=== PATIENT | female | born 1975 | race Caucasian/White ===

== ENCOUNTER 2019-07-25 11:06 | Outpatient (RCR) | payer MEDICARE ==
--- NOTE | 2019-07-25 12:26 | NUR ---
Clinical Swallow Evaluation/Initial Treatment Session Patient is a 43 year old female with diagnosis of dysphagia. Pt participated in a modified barium swallow study on 07/13/19. Pt presented with mild pharyngeal dysphagia c/b consistent premature spillage over the base of tongue, silent deep penetration and trace aspiration of thin liquids, and consistent trace to minimal pharyngeal residue after the swallow. Dysphagia was judged to be secondary to decreased coordination of the swallow and decreased hyolaryngeal excursion. Pt also demonstrated symptoms consistent with laryngopharyngeal reflux (LPR) including altered vocal quality, globus sensation, and constant throat clearing. Recommendation was made for dysphagia therapy to increase strength and coordination of swallow. Patient was seen today in the outpatient clinic for initial treatment of Neuromuscular Electrical Stimulation (NMES) with VitalStim Therapy and traditional dysphagia therapy with pharyngeal exercises. Pt was seen with no family present. Oral motor exam revealed function that was grossly within normal limits. Patient tolerated room air. Hearing appeared to be WFL. Patient reported no change in her swallow skills since the modified barium swallow study. Pt confirmed that she continues to choke and cough intermittently during meal times. Provided extensive education re: need for therapy, purpose of exercises and NMES, and future plan of care. Pt indicated understanding. Pt was given water and hard candy. Pt was instructed to take small bites/sips and swallow hard, feeling all the muscles in her throat contract. Placement 3b was used to target the mylohyoid muscle, the anterior belly of the digastric muscle, the sternohyoid muscle, the omohyoid muscle, the geniohyoid muscle, and the middle pharyngeal constrictors. Channel 1 of the electrodes was aligned horizontally just above the hyoid bone and channel 2 of the electrodes was aligned horizontally at the level of the thyroid notch. This placement was used to improve base of tongue strength, pharyngeal constriction, and UES function. Pt initially tolerated 5.0 mA, but as the session progressed pt tolerated 10.0 mA. Pt received 40 minutes of stimulation. Cough noted X 1, throat clear X 5. Education provided as indicated. All questions were answered. Impressions: Pt tolerated initial session of NMES well. She continues to report and demonstrate s/s of aspiration during meals which significantly interferes with her quality of life. Pt is an excellent candidate for dysphagia exercises and NMES for improvement of strength and coordination of swallow. Recommendations: 1.Dysphagia therapy to include traditional exercises and NMES 2X/week for 6 weeks for a total of 12 treatment sessions 2.Home exercise program 3.Repeat MBS in 6 weeks with new goals to be determined at that time. Residential Goal: Pt will tolerate least restrictive diet without s/s of aspiration as judged by an objective evaluation. Short Term Goals: 1.Pt will complete 3 repetitions of a set of dysphagia exercises to improve laryngeal elevation, base of tongue retraction, and laryngeal closure, 10 repetitions per exercise, with minimal cues. 2.Pt will tolerate NMES for 45 60 minutes with no clinical s/s of aspiration to improve strength of pharyngeal constrictors, hyolaryngeal excursion, and safety with po intake. 3.Pt will complete home dysphagia exercise program targeting laryngeal elevation, base of tongue strength, and cricopharyngeal function independently. 4.Pt will follow aspiration precautions with independence. 5.Pt will participate in a repeat Modified Barium Swallow study to objectively re-assess swallow safety and function and determine safest diet. Angela Christensen M.A. [employer] Date of Session: 07/25/19 Dysphagia Evaluation X 60 minutes [facility]M NOMS Rating for Swallowing: Level 6
== END 2019-08-20 ==
LOC: ST 11:06
PROVIDERS: ATTEND Otolaryngology
DX: R13.13 Dysphagia, pharyngeal phase (principal)

== ENCOUNTER 2024-08-22 17:45 | Emergency (ER) | payer MEDICARE ==
[~2024-08-22] VITALS: Ht 177.8 cm; Wt 122.5 kg
[~2024-08-22 17:45] MED LIST: JANUVIA100 MG PO
[2024-08-22 17:49] VITALS: TEMP 98.4
[2024-08-22 18:18] LABS: BASOPHILS # (AUTO) 0.1 (0.0-0.1); BASOPHILS % 0.6 % (0.0-1.0); EOSINOPHILS # (AUTO) 0.1 (0.0-0.4); EOSINOPHILS % 1.2 % (0.0-6.0); HEMATOCRIT 45.5 % (34.2-44.1); HEMOGLOBIN 15.4 g/dL (12.0-16.0); LYMPHOCYTES # (AUTO) 2.9 (1.0-3.2); LYMPHOCYTES % 24.5 % (18.0-39.1); MEAN CORPUSCULAR HEMOGLOBIN 30.7 pg (28-32); MEAN CORPUSCULAR HGB CONC 33.8 g/dL (31-35); MEAN CORPUSCULAR VOLUME 90.6 fL (81-99); MONOCYTES # (AUTO) 0.6 (0.2-0.8); MONOCYTES % 4.6 % (4.4-11.3); NEUTROPHILS # (AUTO) 8.1 (2.1-6.9); NEUTROPHILS % 68.6 % (38.7-80.0); PLATELET COUNT 339 x10e3/uL (140-360); RED BLOOD COUNT 5.02 x10e6/uL (3.6-5.1); RED CELL DISTRIBUTION WIDTH 13.3 % (11.7-14.4); WHITE BLOOD COUNT 11.86 x10e3/uL (4.8-10.8)
[2024-08-22 18:33] LABS: ALBUMIN 4.3 g/dL (3.5-5.0); ALBUMIN/GLOBULIN RATIO 1.5 (0.8-2.0); ANION GAP 20.2 mmol/L (8-16); BILIRUBIN,TOTAL 0.5 mg/dL (0.2-1.2); CALCIUM 9.5 mg/dL (8.4-10.2); CREATININE, SERUM 1.2 mg/dL (0.57-1.11); POTASSIUM 4.2 mmol/L (3.5-5.1); TOTAL PROTEIN 7.2 g/dL (6.5-8.1)
[2024-08-22] MEDS ORDERED: SODIUM CHLORIDE 0.9% 1000ML 1,000 ML ONE (19:18)
[2024-08-22] MEDS ORDERED: IOPAMIDOL 370 MG/ML 100 ML INFUS..BTL INJ ONE (19:18)
[2024-08-22] MEDS: SODIUM CHLORIDE 0.9% 1000ML 1,000 ML IV ONE (19:54)
[2024-08-22] MEDS: ONDANSETRON HCL INJ 2MG/ML 2ML 2 MG/ML VIAL IV STA (20:11)
[2024-08-22 21:13] VITALS: PULSE 78; RESP 17
[2024-08-22] MEDS ORDERED: DICYCLOMINE HCL20 MG PO (21:38)
[2024-08-22] MEDS ORDERED: ONDANSETRON ODT4 MG SL (21:38)
[2024-08-22] MEDS ORDERED: PANTOPRAZOLE SO40 MG PO (21:38)
[2024-08-22 22:02] VITALS: BP 114/73; PULSE 74; RESP 17; TEMP 98; O2SAT 96
== END 2024-08-22 21:45 | disposition home or self-care (01) ==
LOC: ER 18:48
DX: R00.2 Palpitations (principal); K80.20 Calculus of gallbladder without cholecystitis without obstruction; R06.02 Shortness of breath; R16.0 Hepatomegaly, not elsewhere classified; R91.8 Other nonspecific abnormal finding of lung field; R94.31 Abnormal electrocardiogram [ECG] [EKG]
CPT/HCPCS: 36415; 71260; 74177; 80053; 83690; 84484; 85025; 93005; 99284; J2405; J2470; J7030; Q9967